=== PATIENT | male | born 1965 ===

== ENCOUNTER 2017-05-28 01:23 | Emergency (ER) | payer MEDICAID ==
[2017-05-28 01:35] VITALS: BMI 27.2
[2017-05-28 01:44] VITALS: BP 129/85; PULSE 109; RESP 18; TEMP 98.9; O2SAT 99
--- NOTE | 2017-05-28 02:15 | ED PDOC ---
HPI: Psych/Substance Abuse Time Seen by Provider: 05/28/17 01:26 Chief Complaint (Nursing): Alcohol Ingestion Chief Complaint (Provider): EtOH abuse ED Caveat: Intoxicated History Per: EMS History/Exam Limitations: intoxication Onset/Duration Of Symptoms: Unknown Additional Complaint(s): 52yo male, brought to ED by EMS after patient was found publicly intoxicated. A full HPI and ROS is unavailable as patient is intoxicated. Past Medical History Reviewed: Historical Data, Nursing Documentation, Vital Signs Vital Signs: Last Vital Signs Temp 98.9 F 05/28/17 01:29 Pulse 109 H 05/28/17 01:29 Resp 18 05/28/17 01:29 BP 129/85 05/28/17 01:29 Pulse Ox 99 05/28/17 01:29 - Medical History PMH: No Chronic Diseases - Surgical History Surgical History: No Surg Hx - Family History Family History: States: No Known Family Hx - Immunization History Hx Tetanus Toxoid Vaccination: No Hx Influenza Vaccination: No Hx Pneumococcal Vaccination: No - Home Medications Home Medications: Ambulatory Orders Medication Instructions Recorded No Known Home Med [No Known Home 01/07/14 Med] - Allergies Allergies/Adverse Reactions: Allergies Allergy/AdvReac Type Severity Reaction Status Date / Time No Known Allergies Allergy Verified 03/23/17 18:03 Review of Systems Review Of Systems: ROS cannot be obtained secondary to pt's inabilty to answer questions. Physical Exam - Reviewed Nursing Documentation Reviewed: Yes Vital Signs Reviewed: Yes - Physical Exam Appears: Positive for: No Acute Distress Skin: Positive for: Normal Color ENT: Positive for: Other (alcohol on breath) Neck: Positive for: Supple Cardiovascular/Chest: Positive for: Regular Rate, Rhythm Respiratory: Positive for: Normal Breath Sounds. Negative for: Respiratory Distress Neurologic/Psych: Positive for: Mood/Affect (slurred speech), Gait (unsteady) - ECG O2 Sat by Pulse Oximetry: 99 (RA) Pulse Ox Interpretation: Normal - Critical Care Total Time (In Min): 30 Documented Critical Care: Time excludes all time spent performint seperately billable procedures Medical Decision Making Medical Decision Making: Time: 013 Impression: Alcohol intoxication Plan: -- Patient placed in 4 point restraints due to risk for elopement, harm to self and others. -- Haldol 5mg and Ativan 2 mg ordered -- Alcohol serum Reassess Time: 0300 Patient resting in room, no acute distress. Time: 0436 Patient resting comfortably, no acute distress. Scribe Attestation: Documented by Odalis Overton acting as a scribe for Ruslan Pascal MD. Provider Attestation: All medical record entries made by the Scribe were at my direction and personally dictated by me. I have reviewed the chart and agree that the record accurately reflects my personal performance of the history, physical exam, medical decision making, and the department course for this patient. I have also personally directed, reviewed, and agree with the discharge instructions and disposition. Disposition - Clinical Impression Clinical Impression: Alcohol abuse with intoxication - Disposition Disposition: Routine/Home Disposition Time: 06:30 Condition: STABLE Instructions: Alcohol Intoxication (ED) Forms: [email or web address] (Turkmen) Print Language: [place]
== END 2017-05-28 06:54 | disposition home or self-care (01) ==
LOC: H.ER 01:23
DX: F10.129 Alcohol abuse with intoxication, unspecified (principal)
CPT/HCPCS: 80320; 82948; 96372; 99284; J1630; J2060

== ENCOUNTER 2017-06-19 03:16 | Emergency (ER) | payer MEDICAID ==
[2017-06-19 03:17] VITALS: BMI 28.1
--- NOTE | 2017-06-19 03:56 | ED PDOC ---
HPI: Psych/Substance Abuse Time Seen by Provider: 06/19/17 03:21 Chief Complaint (Nursing): Alcohol Ingestion Chief Complaint (Provider): Alcohol Ingestion ED Caveat: Intoxicated History Per: Patient Current Symptoms Are (Timing): Still Present Additional Complaint(s): 52 y/o male self presents to the ED for alcohol intoxication. Past Medical History Reviewed: Historical Data, Nursing Documentation, Vital Signs Vital Signs: Last Vital Signs Temp 99 F 06/19/17 03:29 Pulse 87 06/19/17 03:29 Resp 16 06/19/17 03:29 BP 140/89 06/19/17 03:29 Pulse Ox 99 06/19/17 03:29 - Family History Family History: States: Unknown Family Hx - Social History Alcohol: > 2 Drinks/Day - Immunization History Hx Tetanus Toxoid Vaccination: No Hx Influenza Vaccination: No Hx Pneumococcal Vaccination: No - Home Medications Home Medications: Ambulatory Orders Medication Instructions Recorded No Known Home Med [No Known Home 01/07/14 Med] - Allergies Allergies/Adverse Reactions: Allergies Allergy/AdvReac Type Severity Reaction Status Date / Time No Known Allergies Allergy Verified 06/19/17 03:28 Review of Systems ROS Statement: Except As Marked, All Systems Reviewed And Found Negative (As per HPI, otherwise negative) Neurological: Positive for: Other (Alcohol intoxication) Physical Exam - Reviewed Nursing Documentation Reviewed: Yes Vital Signs Reviewed: Yes - Physical Exam Appears: Positive for: No Acute Distress Head Exam: Positive for: ATRAUMATIC, NORMAL INSPECTION, NORMOCEPHALIC Skin: Positive for: Normal Color, Warm, Dry Eye Exam: Positive for: Normal appearance ENT: Positive for: Normal ENT Inspection Neck: Positive for: Normal Cardiovascular/Chest: Positive for: Regular Rate, Rhythm. Negative for: Murmur Respiratory: Negative for: Accessory Muscle Use, Respiratory Distress Gastrointestinal/Abdominal: Positive for: Normal Exam, Soft. Negative for: Tenderness Back: Positive for: Normal Inspection Extremity: Positive for: Normal ROM Neurologic/Psych: Positive for: Alert, Oriented, Gait (unsteady), Other ( slurred speech) - ECG O2 Sat by Pulse Oximetry: 99 (RA) Pulse Ox Interpretation: Normal Medical Decision Making Medical Decision Making: Time: 05:00 Initial Impression: 52 y/o male with alcohol intoxication Plan: Accucheck Alcohol serum Time: 07:00 Patient is signed out to Dr. Stark pending sobriety. Scribe Attestation: Documented by Immanuel Cruz acting as a scribe for Ruslan Pascal MD. Scribe Attestation: All medical record entries made by the Scribe were at my direction and personally dictated by me. I have reviewed the chart and agree that the record accurately reflects my personal performance of the history, physical exam, medical decision making, and the department course for this patient. I have also personally directed, reviewed, and agree with the discharge instructions and disposition. Disposition - Clinical Impression Clinical Impression: Alcohol abuse - Disposition Disposition: Routine/Home Disposition Time: 07:00 Condition: STABLE Additional Instructions: Return to ER for any concern for self. Avoid alcohol in large quantities. Instructions: At-Risk Alcohol Use (ED) Forms: [employer] (Citizen Of [place]) Print Language: CROATIAN
--- NOTE | 2017-06-19 07:04 | ED PDOC ---
- ECG O2 Sat by Pulse Oximetry: 99 (RA) Medical Decision Making Medical Decision Makinam recd pending sobriety 11am- arousable but gait unsteady 1245pm- awake, alert w clear speech, ambulating. DC from ED> Disposition Counseled Patient/Family Regarding: Studies Performed, Diagnosis, Need For Followup - Clinical Impression Clinical Impression: Alcohol abuse - POA Present On Arrival: None - Disposition Disposition: Routine/Home Disposition Time: 12:45 Condition: STABLE Additional Instructions: Return to ER for any concern for self. Avoid alcohol in large quantities. Instructions: At-Risk Alcohol Use (ED) Forms: [facility] (Anguillan) Print Language: BURMESE
[2017-06-19 09:42] VITALS: BP 113/59; PULSE 90; RESP 20; TEMP 98.1
[2017-06-20 06:48] VITALS: O2SAT 99
== END 2017-06-19 13:59 | disposition home or self-care (01) ==
LOC: H.ER 03:16
DX: F10.129 Alcohol abuse with intoxication, unspecified (principal)

== ENCOUNTER 2017-06-19 22:04 | Emergency (ER) | payer MEDICAID ==
[2017-06-19 22:04] VITALS: BMI 28.1
--- NOTE | 2017-06-19 22:52 | ED PDOC ---
HPI: Psych/Substance Abuse Time Seen by Provider: 06/19/17 22:14 Chief Complaint (Nursing): Alcohol Ingestion Chief Complaint (Provider): Alcohol Intoxication ED Caveat: Intoxicated History Per: Patient History/Exam Limitations: intoxication Current Symptoms Are (Timing): Still Present Additional History Per: EMS Additional Complaint(s): Waldo is a 52 y/o male who was brought into the ED by EMS for public intoxication. Patient is well known to provider and ED for multiple visits including one earlier today for similar symptoms. PMD: None Past Medical History Reviewed: Historical Data, Nursing Documentation, Vital Signs Vital Signs: Last Vital Signs Temp Pulse 104 H 06/19/17 22:09 Resp 16 06/19/17 22:09 BP 111/80 06/19/17 22:09 Pulse Ox 96 06/19/17 22:09 - Medical History PMH: Fractures - Family History Family History: States: Unknown Family Hx - Immunization History Hx Tetanus Toxoid Vaccination: No Hx Influenza Vaccination: No Hx Pneumococcal Vaccination: No - Home Medications Home Medications: Ambulatory Orders Medication Instructions Recorded No Known Home Med [No Known Home 01/07/14 Med] - Allergies Allergies/Adverse Reactions: Allergies Allergy/AdvReac Type Severity Reaction Status Date / Time No Known Allergies Allergy Verified 06/19/17 03:28 Review of Systems Review Of Systems: ROS cannot be obtained secondary to pt's inabilty to answer questions. Physical Exam - Reviewed Nursing Documentation Reviewed: Yes Vital Signs Reviewed: Yes - Physical Exam Appears: Positive for: No Acute Distress Neurologic/Psych: Positive for: Motor/Sensory Deficits (slurred speech, unsteady gait) - ECG O2 Sat by Pulse Oximetry: 96 (RA) Pulse Ox Interpretation: Normal Medical Decision Making Medical Decision Making: Time: 22:14 Initial Impression: 52 y/o intoxicated male Initial Plan: --Alcohol serum --Urine drug screen --Accucheck Time: 0600 Patient awake, alert and oriented x 3 with steady gait. Stable for discharge home. Scribe Attestation: Documented by Amado Soto, acting as a scribe for Ruslan Pascal MD Provider Scribe Attestation: All medical record entries made by the Scribe were at my direction and personally dictated by me. I have reviewed the chart and agree that the record accurately reflects my personal performance of the history, physical exam, medical decision making, and the department course for this patient. I have also personally directed, reviewed, and agree with the discharge instructions and disposition. Disposition - Clinical Impression Clinical Impression: Alcohol abuse with intoxication - Disposition Disposition: Routine/Home Disposition Time: 07:00 Condition: STABLE Instructions: Alcohol Intoxication (ED) Forms: [facility] (Finnish)
[2017-06-20 07:06] VITALS: BP 124/77; PULSE 81; RESP 18; O2SAT 99
== END 2017-06-20 07:05 | disposition home or self-care (01) ==
LOC: H.ER 22:04
DX: F10.129 Alcohol abuse with intoxication, unspecified (principal)

== ENCOUNTER 2017-07-26 09:28 | Emergency (ER) | payer MEDICAID ==
[2017-07-26 09:29] VITALS: BMI 28.1
[2017-07-26 09:43] VITALS: BP 130/83; PULSE 80; RESP 18; TEMP 98; O2SAT 98
--- NOTE | 2017-07-26 10:29 | ED PDOC ---
HPI: Psych/Substance Abuse Time Seen by Provider: 07/26/17 10:08 Chief Complaint (Nursing): Alcohol Ingestion Chief Complaint (Provider): etoh History Per: Patient Additional Complaint(s): 52-year-old male presents acutely intoxicated by ambulance. Patient admits to drinking a couple glasses of wine after work this morning. He offers no complaints at this time. Past Medical History Reviewed: Historical Data, Nursing Documentation, Vital Signs Vital Signs: Last Vital Signs Temp 98 F 07/26/17 09:40 Pulse 80 07/26/17 09:40 Resp 18 07/26/17 09:40 BP 130/83 07/26/17 09:40 Pulse Ox 98 07/26/17 09:40 - Medical History PMH: No Chronic Diseases - Family History Family History: States: No Known Family Hx - Living Arrangements Living Arrangements: With Family - Social History Alcohol: Social - Home Medications Home Medications: Ambulatory Orders Medication Instructions Recorded No Known Home Med [No Known Home 01/07/14 Med] - Allergies Allergies/Adverse Reactions: Allergies Allergy/AdvReac Type Severity Reaction Status Date / Time No Known Allergies Allergy Verified 07/26/17 09:40 Review of Systems ROS Statement: Except As Marked, All Systems Reviewed And Found Negative Psych: Positive for: Other (etoh) Physical Exam - Reviewed Nursing Documentation Reviewed: Yes Vital Signs Reviewed: Yes - Physical Exam Appears: Positive for: Well, Non-toxic, No Acute Distress Skin: Negative for: Rash Eye Exam: Positive for: Normal appearance Neurologic/Psych: Positive for: Alert, Oriented, Gait (steady) - ECG O2 Sat by Pulse Oximetry: 98 Pulse Ox Interpretation: Normal Medical Decision Making Medical Decision Makin52 year old intoxicated male Patient is stable upon arrival, he is awake and alert, has steady gait. Patient tolerated tray of food in ED. He is stable for discharge. Disposition - Clinical Impression Clinical Impression: Alcohol intoxication - Patient ED Disposition Is Patient to be Admitted: No Counseled Patient/Family Regarding: Need For Followup - Disposition Referrals: [facility] [Outside] Disposition: Routine/Home Disposition Time: 10:27 Condition: STABLE Instructions: Alcohol Intoxication (ED)
== END 2017-07-26 11:48 | disposition home or self-care (01) ==
LOC: H.ER 09:28
DX: F10.129 Alcohol abuse with intoxication, unspecified (principal)

== ENCOUNTER 2017-08-09 19:40 | Emergency (ER) | payer MEDICAID ==
[2017-08-09 19:58] VITALS: BMI 27.2
[2017-08-09 20:00] VITALS: RESP 16
--- NOTE | 2017-08-09 22:55 | ED PDOC ---
HPI: Psych/Substance Abuse Time Seen by Provider: 08/09/17 20:34 Chief Complaint (Nursing): Alcohol Ingestion History Per: Patient History/Exam Limitations: intoxication Additional Complaint(s): 52-year-old male with history of alcoholism, presents to the emergency room for being intoxicated. Patient admits to drinking alcohol tonight. He was at home when he called the ambulance to go to the hospital for alcohol intoxication. Otherwise he reports no trauma, injury, fever, headache, chest, abdominal pain, nausea, vomiting. Has no additional complaints at this time. Past Medical History Vital Signs: Last Vital Signs Temp 97.1 F L 08/09/17 19:58 Pulse 86 08/09/17 19:58 Resp 16 08/09/17 19:58 BP 128/70 08/09/17 19:58 Pulse Ox 97 08/09/17 19:58 - Medical History PMH: Fractures - Family History Family History: States: Unknown Family Hx - Immunization History Hx Tetanus Toxoid Vaccination: No Hx Influenza Vaccination: No Hx Pneumococcal Vaccination: No - Home Medications Home Medications: Ambulatory Orders Medication Instructions Recorded No Known Home Med [No Known Home 01/07/14 Med] - Allergies Allergies/Adverse Reactions: Allergies Allergy/AdvReac Type Severity Reaction Status Date / Time No Known Allergies Allergy Verified 07/26/17 09:40 Review of Systems Constitutional: Negative for: Fever, Chills, Weakness Cardiovascular: Negative for: Chest Pain, Palpitations Respiratory: Negative for: Cough, Shortness of Breath Gastrointestinal: Negative for: Vomiting, Abdominal Pain Skin: Negative for: Rash Neurological: Negative for: Weakness, Numbness Physical Exam - Physical Exam Appears: Positive for: No Acute Distress Head Exam: Positive for: ATRAUMATIC, NORMAL INSPECTION Skin: Positive for: Normal Color, Warm, Dry ENT: Positive for: Normal ENT Inspection Neck: Positive for: Normal, Supple Cardiovascular/Chest: Positive for: Regular Rate, Rhythm. Negative for: Murmur Respiratory: Positive for: Normal Breath Sounds. Negative for: Rales, Rhonchi, Wheezing Gastrointestinal/Abdominal: Positive for: Normal Exam, Soft. Negative for: Tenderness Back: Positive for: Normal Inspection. Negative for: Vertebral Tenderness Extremity: Positive for: Normal ROM. Negative for: Tenderness, Deformity, Swelling Neurologic/Psych: Positive for: Alert, lead applications developer II-XII. Negative for: Motor/Sensory Deficits - ECG O2 Sat by Pulse Oximetry: 97 Medical Decision Making Medical Decision Making: Will observe the patient in the ER until clinically sober. Patient tolerated a sandwich and juice while in the ER. On re-evaluation, patient is sleeping comfortably in no acute distress, breathing is easy and unlabored. Case endorsed to MARGARITA Reynoso at 0000 pending sobriety and disposition. Disposition - Clinical Impression Clinical Impression: Alcohol intoxication - Patient ED Disposition Is Patient to be Admitted: Transfer of Care (Case endorsed to MARGARITA Reynoso at 0000 pending sobriety and disposition.) - Disposition Disposition Time: 00:00 Condition: STABLE - PA / POLICYHOLDER INFORMATION CLERK / Resident Statement /DO has reviewed & agrees with the documentation as recorded.
--- NOTE | 2017-08-10 03:06 | ED PDOC ---
- ECG O2 Sat by Pulse Oximetry: 97 - Progress ED Course And Treament: Case endorsed to copywriter from Dilshad ROGERS pending eval 00:30 Patient sleeping; no distress 2:00 Patient sleeping; no distress 3:30 Patient sleeping; no distress 5:00 Patient awake, alert, oriented x3. Ambulating steady gait. Stable for discharge Disposition - Clinical Impression Clinical Impression: Alcohol abuse with intoxication - POA Present On Arrival: None - Disposition Disposition: Routine/Home Disposition Time: 05:03 Condition: STABLE Instructions: Abuse of Alcohol (ED) Print Language: CROATIAN
[2017-08-10 05:11] VITALS: BP 122/78; PULSE 92; TEMP 98.2; O2SAT 98
== END 2017-08-10 05:13 | disposition home or self-care (01) ==
LOC: H.ER 19:40
DX: F10.129 Alcohol abuse with intoxication, unspecified (principal)

== ENCOUNTER 2017-10-21 23:32 | Emergency (ER) | payer MEDICAID ==
[2017-10-21 23:32] VITALS: BMI 27.2
[2017-10-21 23:35] VITALS: O2SAT 98
--- NOTE | 2017-10-21 23:44 | ED PDOC ---
HPI: Psych/Substance Abuse Time Seen by Provider: 10/21/17 23:39 Chief Complaint (Nursing): Alcohol Ingestion Chief Complaint (Provider): etoh History Per: Patient, EMS Additional Complaint(s): 52-year-old male presents to emergency department acutely intoxicated. [place] the park intoxicated and was brought here by police and EMS. He is not under arrest. Patient admits to drinking, he offers no acute medical or psychiatric complaints. Past Medical History Reviewed: Historical Data, Nursing Documentation, Vital Signs Vital Signs: Last Vital Signs Temp 97.6 F 10/21/17 23:33 Pulse 97 H 10/21/17 23:33 Resp 18 10/21/17 23:33 BP 168/88 H 10/21/17 23:33 Pulse Ox 98 10/21/17 23:33 - Medical History PMH: No Chronic Diseases - Family History Family History: States: No Known Family Hx - Living Arrangements Living Arrangements: With Family - Social History Current smoker - smoking cessation education provided: No Alcohol: > 2 Drinks/Day - Home Medications Home Medications: Ambulatory Orders Medication Instructions Recorded No Known Home Med [No Known Home 01/07/14 Med] - Allergies Allergies/Adverse Reactions: Allergies Allergy/AdvReac Type Severity Reaction Status Date / Time No Known Allergies Allergy Verified 07/26/17 09:40 Review of Systems ROS Statement: Except As Marked, All Systems Reviewed And Found Negative Psych: Positive for: Other (etoh) Physical Exam - Reviewed Nursing Documentation Reviewed: Yes Vital Signs Reviewed: Yes - Physical Exam Appears: Positive for: Well, Non-toxic, No Acute Distress Skin: Negative for: Rash Eye Exam: Positive for: Normal appearance Cardiovascular/Chest: Positive for: Regular Rate, Rhythm Respiratory: Positive for: Normal Breath Sounds Neurologic/Psych: Positive for: Alert, Gait (steady), Other (intoxicated, answers questions appropriately) - ECG O2 Sat by Pulse Oximetry: 98 Pulse Ox Interpretation: Normal Medical Decision Making Medical Decision Makin52 year old intoxicated male PlaN: Glucose POC BAL BAL is 350 Fingerstick: 107 Patient was observed in ED for several hours. His condition remained stable throughout his stay. 6:00 am: patient is awake, alert, has steady gait, he is stable for discharge. Disposition - Clinical Impression Clinical Impression: Alcohol abuse with uncomplicated intoxication - Patient ED Disposition Is Patient to be Admitted: No - Disposition Referrals: [facility] [Outside] Disposition: Routine/Home Disposition Time: 06:00 Condition: STABLE Instructions: Alcohol Abuse and Alcoholism (DC) Forms: [employer] (Guatemalan)
[2017-10-22 06:40] VITALS: BP 133/82; PULSE 82; RESP 17; TEMP 98.1
== END 2017-10-22 06:18 | disposition home or self-care (01) ==
LOC: H.ER 23:32
DX: F10.120 Alcohol abuse with intoxication, uncomplicated (principal)

== ENCOUNTER 2017-10-22 14:20 | Emergency (ER) | payer MEDICAID ==
[2017-10-22 14:20] VITALS: BMI 27.2
[2017-10-22 14:26] VITALS: PULSE 79; RESP 16; TEMP 97.9; O2SAT 97
--- NOTE | 2017-10-22 14:43 | ED PDOC ---
HPI: Psych/Substance Abuse Time Seen by Provider: 10/22/17 14:29 Chief Complaint (Nursing): Alcohol Ingestion Chief Complaint (Provider): alcohol intoxication History Per: Patient Additional Complaint(s): Pt found sleeping on ground. Admits to drinking and has more alcohol and would like to continue to drink. Without any complaints. Denies injury. Previous visits for alcohol intoxication, including yesterday. PMD None Past Medical History Reviewed: Historical Data, Nursing Documentation, Vital Signs Vital Signs: Last Vital Signs Temp 97.9 F 10/22/17 14:23 Pulse 79 10/22/17 14:23 Resp 16 10/22/17 14:23 BP Pulse Ox 97 10/22/17 14:23 - Medical History Other PMH: Alcoholism - Family History Family History: States: Unknown Family Hx - Social History Alcohol: > 2 Drinks/Day - Home Medications Home Medications: Ambulatory Orders Medication Instructions Recorded No Known Home Med [No Known Home 01/07/14 Med] - Allergies Allergies/Adverse Reactions: Allergies Allergy/AdvReac Type Severity Reaction Status Date / Time No Known Allergies Allergy Verified 10/22/17 14:22 Review of Systems ROS Statement: Except As Marked, All Systems Reviewed And Found Negative (and as per HPI) Neurological: Negative for: Weakness, Numbness, Incoordination Psych: Negative for: Anxiety, Depression, Psychosis, Suicidal ideation, Withdrawal Physical Exam - Reviewed Nursing Documentation Reviewed: Yes Vital Signs Reviewed: Yes - Physical Exam Appears: Positive for: No Acute Distress (dissheveled and unkempt) Head Exam: Positive for: ATRAUMATIC, NORMOCEPHALIC Skin: Positive for: Warm, Dry Eye Exam: Positive for: EOMI, PERRL Neck: Positive for: Painless ROM, Supple Cardiovascular/Chest: Negative for: Tachycardia Respiratory: Negative for: Accessory Muscle Use, Respiratory Distress Gastrointestinal/Abdominal: Negative for: Tenderness Back: Negative for: Decreased ROM Extremity: Positive for: Normal ROM. Negative for: Deformity Lymphatic: Negative for: Adenopathy Neurologic/Psych: Positive for: Alert, Mood/Affect (happy mood and affect), Gait (steady). Negative for: Motor/Sensory Deficits - ECG O2 Sat by Pulse Oximetry: 97 Disposition - Clinical Impression Clinical Impression: Alcohol dependence, Alcohol abuse with intoxication - Disposition Referrals: [facility] [Outside] [facility] [Outside] Disposition: Routine/Home Disposition Time: 14:46 Condition: STABLE Instructions: Alcohol Abuse and Alcoholism (DC) Print Language: SALVADOREAN
== END 2017-10-22 14:45 | disposition home or self-care (01) ==
LOC: H.ER 14:20
DX: F10.129 Alcohol abuse with intoxication, unspecified (principal)

== ENCOUNTER 2017-12-25 18:52 | Emergency (ER) | payer MEDICAID ==
[2017-12-25 18:53] VITALS: BMI 27.2
[2017-12-25 19:06] VITALS: O2SAT 100
[2017-12-25] MEDS ORDERED: Lidocaine 5% Patch TD STA (20:27)
--- NOTE | 2017-12-25 20:28 | ED PDOC ---
HPI: Chest Pain Time Seen by Provider: 12/25/17 19:12 Chief Complaint (Nursing): Chest Pain Chief Complaint (Provider): chest pain History Per: Patient History/Exam Limitations: no limitations Onset/Duration Of Symptoms: Other (2 weeks ) Current Symptoms Are (Timing): Still Present Context: Travel ([facility], back 11/16/17) Pain Scale Rating Of: 7 Quality: Sharp Exacerbating Factors: Movement Alleviating Factors: None Additional Complaint(s): 52 yo ,m, PMhx/o ETOH abuse ( quit 2 months ago) presents to Ed c/o left side chest pain started 2 weeks ago, while at home, intermittent, sometimes constant , 7/10 intensity, partially alleviated with tylenol , first event, reproducible , aggravated with left arm movements, no peluritic, not associated symptoms. He denies fever, cough, runny nose, pyrosis, epigastric abd pain,n,v, diaphoresis, palpitation, SOB, pedal edema, calf pain, hx/o DVT. Reports recent travel to [facility] x 7 days and came back 11/16/17. PMD: No PMD Past Medical History Reviewed: Historical Data, Nursing Documentation, Vital Signs Vital Signs: Last Vital Signs Temp 98.0 F 12/25/17 19:04 Pulse 66 12/25/17 19:04 Resp 20 12/25/17 19:04 BP 116/64 12/25/17 19:04 Pulse Ox 100 12/25/17 23:59 - Medical History PMH: No Chronic Diseases - Family History Family History: States: Unknown Family Hx Other Family History: noncontributory - Social History Alcohol: Other (ETOH abuse. quit 2 months ago) Drugs: Denies - Immunization History Hx Tetanus Toxoid Vaccination: No Hx Influenza Vaccination: No Hx Pneumococcal Vaccination: No - Home Medications Home Medications: Ambulatory Orders Medication Instructions Recorded Lidocaine 5% [Lidoderm] 1 ea TD DAILY PRN #20 patch 12/25/17 Naproxen 500 mg PO BID 7 Days #14 tab 12/25/17 - Allergies Allergies/Adverse Reactions: Allergies Allergy/AdvReac Type Severity Reaction Status Date / Time No Known Allergies Allergy Verified 12/25/17 19:03 KT Risk Score for UA/NSTEMI - KT Risk Score Age > 64: NO 3 or more CAD Risk Factors: NO Known CAD (Stenosis greater than 50%): NO Aspirin use in past 7 days: NO Severe Angina: NO EKG ST changes greater than 0.5mm: NO KT Score: 0 Risk %: 5% Curb-65 Severity Score - CURB-65 Severity Score Confusion: No Bun >19mg/dl (>7mmol/L): No Respiratory Rate greater than/equal to 30: No Systolic BP <90 or Diastolic BP less than/equal 60mmHg: No Age >64: No Curb-65 Score: 0 Percentage 30-day mortality: 0.6% Wells Criteria for PE - Wells Criteria for Pulmonary Embolism Clinical Signs and Symptoms of DVT: No P.E is #1 Diagnosis, or Equally Likely: No Heart Rate >100: No Immobilization at least 3 days;Surgery previous 4 weeks: No Previous, objectively diagnosed PE or DVT: No Hemoptysis: No Malignancy w/treatment within 6 months, or palliative: No Total Score: 0 Review of Systems ROS Statement: Except As Marked, All Systems Reviewed And Found Negative Review Of Systems: ROS cannot be obtained secondary to pt's inabilty to answer questions. Cardiovascular: Positive for: Chest Pain Physical Exam - Physical Exam Appears: Positive for: Well, No Acute Distress Head Exam: Positive for: ATRAUMATIC, NORMOCEPHALIC Skin: Positive for: Normal Color ENT: Positive for: Normal ENT Inspection Neck: Positive for: Normal Cardiovascular/Chest: Positive for: Regular Rate, Rhythm, Other (chest TD to palpation left side) Respiratory: Positive for: Normal Breath Sounds Gastrointestinal/Abdominal: Positive for: Bowel Sounds, Soft. Negative for: Tenderness Back: Positive for: Normal Inspection Extremity: Positive for: Normal ROM. Negative for: Tenderness, Pedal Edema, Calf Tenderness - Laboratory Results Result Diagrams: 12/25/17 21:11 12/25/17 21:11 - ECG O2 Sat by Pulse Oximetry: 100 Medical Decision Making Medical Decision Makin:30 52 yo ,m, PMHx/o ETOH abuse c/o chest pain HEART Pathway 0.9-1.7 % Initial Impression chest pain. Reproducible, may be 2/2 costochondritis Differential ACS, Acute Pericarditis, GERD Plan CBC, CMP, Troponin EKG: NSR. T wave peak V2,V3 CXR: -Toradol 15 mg IV -Lidoderm Revaluation 22:00 Patient seen and states that chest pain subsided. Labs reviewed. CBC, CMP. troponin normal. CXR: no acute infiltrate, no pneumothorax( pending final report) chest pain subsided with toradol an lidoderm patch will repeat EKG 23:27 EKg NSR. No acute changes. T waves in V2,V3 normal. Patient asymptomatic, no chest pain patient cleared to be discharge and f/u with PMD Kishore Patterson V Disposition - Clinical Impression Clinical Impression: Chest pain, Costochondral chest pain - Patient ED Disposition Is Patient to be Admitted: No Discussed With Dr.: Rhonda Wheatley - Disposition Referrals: [facility] [Outside] Disposition: Routine/Home Disposition Time: 23:50 Condition: FAIR Additional Instructions: follow up with Dr Briseno at [facility] in 2-3 days Prescriptions: Lidocaine 5% [Lidoderm] 1 ea TD DAILY PRN #20 patch PRN Reason: PAIN Naproxen 500 mg PO BID 7 Days #14 tab Instructions: Costochondritis, Chest Pain Forms: [employer] [facility] (Pashto)
[2017-12-25 21:21] LABS: BASO % 0.7 % (0.0-2.0); EOS # 0.1 K/uL (0.0-0.7); EOS % 2.3 % (0.0-4.0); HEMOGLOBIN 13.8 g/dL (12.0-18.0); LYMPH % 35.7 % (20.0-40.0); MEAN CELL VOLUME 88.1 fl (80.0-94.0); MEAN CORPUSCULAR HEMOGLOBIN 29.9 pg (27.0-31.0); MEAN CORPUSCULAR HGB CONC 33.9 g/dL (33.0-37.0); MEAN PLATELET VOLUME 7.9 fl (7.2-11.7); MONO # 0.4 K/uL (0.0-0.8); MONO % 7.6 % (0.0-10.0); NEUT % 53.7 % (50.0-75.0); NRBC % 0.1 % (0.0-0.0); RBC 4.61 Mil/uL (4.40-5.90); RED CELL DISTRIBUTION WIDTH 13.3 % (11.5-14.5); WHITE BLOOD COUNT 5.5 K/uL (4.8-10.8)
[2017-12-25 21:41] LABS: ALBUMIN 3.8 g/dL (3.5-5.0); ALT/SGPT 43 U/L (21-72); AST/SGOT 39 U/L (17-59); BLOOD UREA NITROGEN 17 mg/dl (9-20); CALCIUM 8.7 mg/dL (8.4-10.2); GFR AFRICAN-AMERICAN > 60; GFR NON-AFRICAN AMERICAN > 60
[2017-12-26 00:29] VITALS: BP 112/60; PULSE 62; RESP 18; TEMP 98
--- NOTE | 2017-12-26 09:34 | RAD ---
HISTORY: chest pain COMPARISON: No prior. TECHNIQUE: Chest PA and lateral FINDINGS: LUNGS: No active pulmonary disease. PLEURA: No significant pleural effusion identified. No pneumothorax apparent. CARDIOVASCULAR: Normal. OSSEOUS STRUCTURES: Multiple bilateral old healed rib fractures identified. VISUALIZED UPPER ABDOMEN: Normal. OTHER FINDINGS: None. IMPRESSION: No acute cardiopulmonary disease appreciated.
--- NOTE | 2017-12-26 11:18 | CARD ---
APPROVED REPORT EKG Measurement Heart [id number] <Conclusion> Sinus bradycardia Otherwise normal ECG
--- NOTE | 2017-12-26 11:19 | CARD ---
APPROVED REPORT EKG Measurement Heart [id number] <Conclusion> Normal sinus rhythm Normal ECG
== END 2017-12-26 00:25 | disposition home or self-care (01) ==
LOC: H.ER 18:52
DX: R07.9 Chest pain, unspecified (principal)
CPT/HCPCS: 71046; 80053; 84484; 85025; 93005; 96374; 99283; J1885

== ENCOUNTER 2018-03-17 18:21 | Emergency (ER) | payer MEDICAID ==
[2018-03-17 18:21] VITALS: BMI 27.2
--- NOTE | 2018-03-17 19:36 | ED PDOC ---
HPI: Male Pain Time Seen by Provider: 03/17/18 18:50 Chief Complaint (Nursing): Male Genitourinary Additional Complaint(s): 52-year-old male, presents to the emergency department with complaints of three day duration of left sided testicular swelling, associated with foul smelling urine and lower back pain. Patient states he is not currently sexually active with anyone, and does not have any new partners. Past Medical History Reviewed: Historical Data, Nursing Documentation, Vital Signs Vital Signs: Last Vital Signs Temp 98.3 F 03/17/18 18:49 Pulse 90 03/17/18 18:49 Resp 18 03/17/18 18:49 BP 144/72 03/17/18 18:49 Pulse Ox 98 03/17/18 18:49 - Family History Family History: States: No Known Family Hx - Immunization History Hx Tetanus Toxoid Vaccination: No Hx Influenza Vaccination: No Hx Pneumococcal Vaccination: No - Home Medications Home Medications: Ambulatory Orders Medication Instructions Recorded Lidocaine 5% [Lidoderm] 1 ea TD DAILY PRN #20 patch 12/25/17 Naproxen 500 mg PO BID 7 Days #14 tab 12/25/17 Docusate Sodium [Colace] 100 mg PO BID #20 capsule 03/17/18 Levofloxacin [Levaquin] 500 mg PO DAILY #10 tablet 03/17/18 Naproxen 375 mg PO Q8 PRN #21 tablet 03/17/18 - Allergies Allergies/Adverse Reactions: Allergies Allergy/AdvReac Type Severity Reaction Status Date / Time No Known Allergies Allergy Verified 03/17/18 18:49 Review of Systems Constitutional: Negative for: Fever, Chills Gastrointestinal: Negative for: Vomiting Genitourinary Male: Positive for: Other (Foul smelling urine, left sided testicular pain.) Musculoskeletal: Positive for: Back Pain (lower) Neurological: Negative for: Weakness, Numbness Physical Exam - Reviewed Nursing Documentation Reviewed: Yes Vital Signs Reviewed: Yes - Physical Exam Appears: Positive for: Non-toxic, No Acute Distress Head Exam: Positive for: ATRAUMATIC Skin: Positive for: Warm, Dry. Negative for: Rash Eye Exam: Positive for: Normal appearance Neck: Positive for: Painless ROM Cardiovascular/Chest: Positive for: Regular Rate, Rhythm. Negative for: Murmur Respiratory: Positive for: Normal Breath Sounds. Negative for: Accessory Muscle Use Gastrointestinal/Abdominal: Positive for: Soft. Negative for: Tenderness, Guarding, Rebound Male Genital Exam: Positive for: other (left sided testicular swelling and pain) Extremity: Positive for: Normal ROM - Laboratory Results Result Diagrams: 03/17/18 19:30 03/17/18 19:30 - ECG O2 Sat by Pulse Oximetry: 98 - Progress ED Course And Treament: us scrotal FINDINGS: Right testicle: Unremarkable. No mass. No torsion. 4.6 cm x 1.8 cm x 3.5 cm Left testicle: Unremarkable. No mass. No torsion. 4 cm x 2.3 cm x 3.2 cm Epididymides: RIGHT 8mm 8mm x 8mm. RIGHT cyst 3 mm x 3 mm x 3 mm The LEFT 7 mm x 7 mm x 6 mm Epididymal tail measures 1.7 cm x 1.2 cm x 1.2 cm. There is a diffuse increase vascular flow and thickening. These findings correspond to epididymitis. Scrotum: Unremarkable. IMPRESSION: 1. Abnormal LEFT epididymal tail consistent with epididymitis. 2. Bilateral epididymal head simple cyst 3. Negative bilateral testicles Thank you for allowing us to participate in the care of your patient. Dictated and Authenticated by: Russ Christy MD CIPRO 500MG X 1 DOSE TORADOL 15 MG IV X 1 DOSE REPEAT TEMP 98.9 Medical Decision Making Medical Decision Making: Plan: * Bloodwork * Cipro, Toradol * Urine, UA * US Testes * Reassess and Disposition Disposition - Clinical Impression Clinical Impression: Acute epididymitis - Patient ED Disposition Is Patient to be Admitted: No - Disposition Referrals: Eliud Lawler Jr., MD [Staff Provider] - Disposition: Routine/Home Disposition Time: 20:57 Condition: FAIR Prescriptions: Docusate Sodium [Colace] 100 mg PO BID #20 capsule Levofloxacin [Levaquin] 500 mg PO DAILY #10 tablet Naproxen 375 mg PO Q8 PRN #21 tablet PRN Reason: Pain, Moderate (4-7) Instructions: Epididymitis (DC) Forms: [facility] ED School/Work Excuse Print Language: TAJIK
[2018-03-17 19:45] LABS: BASO % 0.5 % (0.0-2.0); EOS % 0.1 % (0.0-4.0); HEMOGLOBIN 13.4 g/dL (12.0-18.0); LYMPH # 1.5 K/uL (1.0-4.3); LYMPH % 16.5 % (20.0-40.0); MEAN CORPUSCULAR HEMOGLOBIN 30.9 pg (27.0-31.0); MEAN CORPUSCULAR HGB CONC 34.7 g/dL (33.0-37.0); MEAN PLATELET VOLUME 7.8 fl (7.2-11.7); MONO # 1.3 K/uL (0.0-0.8); MONO % 13.7 % (0.0-10.0); NEUT # 6.3 K/uL (1.8-7.0); NEUT % 69.2 % (50.0-75.0); RBC 4.32 Mil/uL (4.40-5.90); RED CELL DISTRIBUTION WIDTH 14.1 % (11.5-14.5); WHITE BLOOD COUNT 9.1 K/uL (4.8-10.8)
[2018-03-17 19:52] LABS: URINE BACTERIA OCC (<OCC); URINE BILIRUBIN NEGATIVE (NEGATIVE); URINE BLOOD SMALL (NEGATIVE); URINE CLARITY SLIGHTY-CLOUDY (Clear); URINE COLOR YELLOW (YELLOW); URINE GLUCOSE (UA) NEG (Normal); URINE LEUKOCYTE ESTERASE LARGE Leu/uL (Negative); URINE PROTEIN 30 mg/dL (NEGATIVE)
[2018-03-17 19:53] LABS: BLOOD UREA NITROGEN 14 mg/dl (9-20); GFR NON-AFRICAN AMERICAN > 60
[2018-03-17 21:44] VITALS: BP 114/83; PULSE 86; RESP 17; TEMP 98.7
[2018-03-17 23:28] VITALS: O2SAT 98
--- NOTE | 2018-03-18 12:09 | US ---
Date of service: 03/17/2018 HISTORY: r/o orchitis TECHNIQUE: Realtime sonography through the scrotum with color and doppler flow. COMPARISON: None Available. FINDINGS: RIGHT TESTICLE: Measures 1.8 x 3.5 x 4.6 cm. Normal echotexture and flow. RIGHT EPIDIDYMIS: Epididymal head measures 0.8 x 0.7 cm. 3 mm epididymal cysts. LEFT TESTICLE: Measures 2.3 x 3.2 x 4 cm. Normal echotexture and flow. LEFT EPIDIDYMIS: Epididymal head measures 0.7 x 0.6 cm. Grossly unremarkable appearance with normal flow. Epididymal tail 1.2 x 1.7 cm with hypervascularity consistent with acute epididymitis. HYDROCELE: Unilateral, left. VARICOCELE: Unilateral, right. Diameter of the varicocele with Valsalva of 3.4 mm. OTHER FINDINGS: None. IMPRESSION: Edematous hypervascular epididymal tail on the left compatible with acute epididymitis. Concordant results (preliminary interpretation) provided by [facility]. Procedure Completed: 20:00. Preliminary ([facility]) Report: Dictated and Authenticated: 20:31 Final Interpretation: 12:07.
== END 2018-03-17 21:43 | disposition home or self-care (01) ==
LOC: H.ER 18:21
DX: N45.1 Epididymitis (principal)
CPT/HCPCS: 80048; 81003; 85025; 87086; 87181; 87491; 87591; 93975; 96374; 99283; J1885